=== PATIENT | female | born 1960 | race Caucasian/White ===

== ENCOUNTER 2019-02-23 13:02 | Emergency (ER) | payer OTHER ==
[~2019-02-23] VITALS: Ht 152.4 cm; Wt 68.0 kg
[2019-02-23 13:02] VITALS: BP_SYST 144
[2019-02-23 13:44] LABS: BASOPHILS % (AUTO) 0.3 % (0.0-2.0); EOSINOPHILS % (AUTO) 0.4 % (0.0-4.0); HEMOGLOBIN 9.7 g/dL (12.0-16.0); LYMPHOCYTES # (AUTO) 1.6 K/uL (1.0-5.5); LYMPHOCYTES % (AUTO) 19.4 % (20.5-51.5); MEAN CORPUSCULAR HEMOGLOBIN 27 pg (27-31); MEAN CORPUSCULAR HGB CONC 32 % (32-36); MEAN CORPUSCULAR VOLUME 85 fL (79.0-98.0); MONOCYTES # (AUTO) 0.4 K/uL (0.0-1.0); MONOCYTES % (AUTO) 5.4 % (1.7-9.3); NEUTROPHILS # (AUTO) 6.1 K/uL (1.8-7.7); NEUTROPHILS % (AUTO) 74.5 % (40.0-70.0); PLATELET COUNT (AUTO) 221 K/uL (130-430); RED BLOOD CELL COUNT(AUTO) 3.54 MIL/uL (4.2-6.2); RED CELL DISTRIBUTION WIDTH 15.5 % (9.0-15.0); WHITE BLOOD COUNT (AUTO) 8.2 K/uL (4.8-10.8)
[2019-02-23] MEDS ORDERED: DIPHENHYDRAMINE INJ 50 MG/ML VIAL IVP ONE (13:45)
[2019-02-23] MEDS ORDERED: fentaNYL CITRATE/PF 100 MCG/2 ML AMP IVP ONE (13:45)
[2019-02-23] MEDS ORDERED: PIPERACILLIN/TAZO 3.38 GM in NS 50 ML IV ONE (13:45)
[2019-02-23 13:57] LABS: CREATININE 0.6 mg/dL (0.55-1.30); POTASSIUM 3.5 mmol/L (3.5-5.1)
[2019-02-23 14:01] LABS: ALBUMIN 3.4 g/dL (3.4-4.8); TOTAL BILIRUBIN 0.5 mg/dL (0.0-1.0)
[2019-02-23 14:18] LABS: INR 0.9 (0.8-1.2); PROTHROMBIN TIME 9.7 SECS (9.5-12.5)
[2019-02-23] MEDS ORDERED: KETOROLAC TROMETHAMINE 30 MG VIAL IVP ONE (15:00)
[2019-02-23] MEDS ORDERED: CIPROFLOXACIN HCL 500 MG TABLET PO ONE (15:00)
[2019-02-23 15:30] LABS: BILIRUBIN,URINE NEGATIVE (NEGATIVE); CLARITY/URINE CLEAR (CLEAR); COLOR,URINE YELLOW (YELLOW); GLUCOSE,URINE NEGATIVE (NEGATIVE); KETONES,URINE NEGATIVE (NEGATIVE); LEUKOCYTE ESTERASE ,URINE NEGATIVE (NEGATIVE); NITRITE, URINE NEGATIVE (NEGATIVE); PROTEIN URINE NEGATIVE (NEGATIVE); UROBILINOGEN,URINE 0.2 (0.2-1.0)
[2019-02-23 15:32] LABS: BLOOD, URINE TRACE (NEGATIVE)
[2019-02-23 15:44] LABS: BACTERIA,URINE FEW /HPF (None Seen); RBC,URINE 0-3 /HPF (0-3); WBC,URINE 0-3 /HPF (0-3)
[2019-02-23 15:45] LABS: MUCUS,URINE None Seen /LPF (None Seen)
[2019-02-23 16:05] VITALS: BP_SYST 139
== END 2019-02-23 16:06 | disposition home or self-care (01) ==
LOC: SED 13:02
DX: R10.11 Right upper quadrant pain (principal); R11.2 Nausea with vomiting, unspecified; Z90.49 Acquired absence of other specified parts of digestive tract; Z90.89 Acquired absence of other organs; Z85.850 Personal history of malignant neoplasm of thyroid; Z85.528 Personal history of other malignant neoplasm of kidney; Z88.6 Allergy status to analgesic agent; Z88.8 Allergy status to other drugs, medicaments and biological substances
CPT/HCPCS: 36415; 71045; 74176; 80053; 81000; 83605; 83690; 85025; 85610; 87040; 93005; 96374; 96375; 99284; J1200; J3010; J1885

== ENCOUNTER 2020-06-16 10:43 | Emergency (ER) | payer OTHER ==
[~2020-06-16] VITALS: Ht 152.4 cm; Wt 70.8 kg
[2020-06-16 10:44] VITALS: BP_SYST 140
--- NOTE | 2020-06-16 10:52 | NUR ---
Patient triaged and placed in waiting room. VSS and patient appears in no acute distress at this time. Awaiting available bed, and MD notified of need for MSE.
--- NOTE | 2020-06-16 11:11 | NUR ---
Patient to ER bed 4 to gown for evaluation. Side rails up. Report given to EMILY Sanchez.
--- NOTE | 2020-06-16 11:26 | NUR ---
Note undone in EDM - 06/16/20 at 1129 by JUAN PT REPORTS 08/08 EPIGASTRIC PAIN STARTING THIS MORNING. HAS NOT EATEN OR DRANK ANYTHING TODAY. NAUSEA WITH DRY HEAVING. HISTORY OF DIVERTICULITIS AND THYROID REMOVAL, IBS WITH CONSTIPATION AND GERD. RESTING IN BED, AAOX4, V/S STABLE
--- NOTE | 2020-06-16 11:30 | NUR ---
PT REPORTS 10/10 EPIGASTRIC PAIN STARTING THIS MORNING. HAS NOT EATEN OR DRANK ANYTHING TODAY. NAUSEA WITH DRY HEAVING. HISTORY OF DIVERTICULITIS AND THYROID REMOVAL, IBS WITH CONSTIPATION AND GERD. RESTING IN BED, AAOX4, V/S STABLE
--- NOTE | 2020-06-16 11:32 | NUR ---
DR. PRIEST AT THE BEDSIDE
[2020-06-16] MEDS ORDERED: ONDANSETRON 4 MG ODT TAB PO ONE (11:45)
[2020-06-16] MEDS ORDERED: KETOROLAC TROMETHAMINE 60 MG/2 ML VIAL IM ONE (11:45)
[2020-06-16] MEDS ORDERED: MAG HYDROX/AL HYDROX/SIMETH 30 ML, DICYCLOMINE HCL 20 MG, LIDOCAINE VISCOUS 2% 15ML (PO... PO ONE ×3 (11:45)
--- NOTE | 2020-06-16 11:52 | NUR ---
PT MEDICATED FOR PAIN
[2020-06-16 12:10] LABS: CALCIUM 9.2 mg/dL (8.4-11.0); CREATININE 0.69 mg/dL (0.55-1.30); POTASSIUM 3.5 mmol/L (3.5-5.1)
--- NOTE | 2020-06-16 12:10 | NUR ---
PT ABLE TO VOID, SAMPLE COLLECTED AND TAKEN TO LAB
[2020-06-16 12:16] LABS: ALBUMIN 3.4 g/dL (3.4-4.8); TOTAL BILIRUBIN 0.5 mg/dL (0.0-1.0)
[2020-06-16 12:22] LABS: BASOPHILS # (AUTO) 0.1 K/uL (0.0-0.2); BASOPHILS % (AUTO) 0.8 % (0.0-2.0); EOSINOPHILS # (AUTO) 0.1 K/uL (0.0-0.4); EOSINOPHILS % (AUTO) 0.6 % (0.0-4.0); HEMOGLOBIN 12.7 g/dL (12.0-16.0); LYMPHOCYTES # (AUTO) 1.7 K/uL (1.0-5.5); LYMPHOCYTES % (AUTO) 17.1 % (20.5-51.5); MEAN CORPUSCULAR HEMOGLOBIN 26 pg (27-31); MEAN CORPUSCULAR HGB CONC 32 % (32-36); MEAN CORPUSCULAR VOLUME 82 fL (79.0-98.0); MONOCYTES # (AUTO) 0.5 K/uL (0.0-1.0); MONOCYTES % (AUTO) 5.1 % (1.7-9.3); NEUTROPHILS # (AUTO) 7.4 K/uL (1.8-7.7); NEUTROPHILS % (AUTO) 76.4 % (40.0-70.0); PLATELET COUNT (AUTO) 255 K/uL (130-430); RED BLOOD CELL COUNT(AUTO) 4.86 MIL/uL (4.2-6.2); RED CELL DISTRIBUTION WIDTH 14.6 % (9.0-15.0); WHITE BLOOD COUNT (AUTO) 9.7 K/uL (4.8-10.8)
[2020-06-16 13:21] VITALS: BP_SYST 140
--- NOTE | 2020-06-16 13:23 | NUR ---
Patient given written and verbal discharge instructions and verbalizes understanding. ER MD discussed with patient the results and treatment provided. Patient in stable condition. ID arm band removed. IV catheter removed intact and dressing applied, no active bleeding. Rx of Carafate given. Patient educated on pain management and to follow up with PMD. Pain Scale 3/10. Opportunity for questions provided and answered. Medication side effect fact sheet provided.
== END 2020-06-16 13:21 | disposition home or self-care (01) ==
LOC: SED 10:43
DX: R10.13 Epigastric pain (principal); Z85.850 Personal history of malignant neoplasm of thyroid; Z85.528 Personal history of other malignant neoplasm of kidney; Z88.6 Allergy status to analgesic agent
CPT/HCPCS: 36415; 80053; 83690; 85025; 93005; 96372; 99284; J1885; J2001; Q0162

== ENCOUNTER 2020-10-18 19:07 | Emergency (ER) | payer OTHER ==
[~2020-10-18] VITALS: Ht 152.4 cm; Wt 69.4 kg
--- NOTE | 2020-10-18 20:00 | NUR ---
ER Dr. Ku at bedside examining patient.
[2020-10-18 20:15] VITALS: BP_SYST 127
--- NOTE | 2020-10-18 20:15 | NUR ---
Patient triaged and placed in ER Tent. VSS and patient appears in no acute distress at this time. Awaiting available bed, and MD notified of need for MSE.
--- NOTE | 2020-10-18 20:16 | NUR ---
Patient came from home for evaluation of what she says is a diverticulitis flare up. She is complaining of nausea,vomiting,diarrhea,and headache.
--- NOTE | 2020-10-18 20:30 | NUR ---
ADIS Ku in tent examining patient.
--- NOTE | 2020-10-18 22:15 | NUR ---
Patient left without being seen.
== END 2020-10-18 22:15 | disposition left against medical advice (07) ==
LOC: SED 19:07
DX: R10.32 Left lower quadrant pain (principal); Z88.5 Allergy status to narcotic agent; Z88.8 Allergy status to other drugs, medicaments and biological substances
CPT/HCPCS: 76376; 99284

== ENCOUNTER 2020-11-09 09:26 | Emergency (ER) | payer OTHER, SELFPAY ==
[~2020-11-09] VITALS: Ht 152.4 cm; Wt 68.0 kg
[2020-11-09 09:39] VITALS: BP_SYST 142
[2020-11-09] MEDS ORDERED: ONDANSETRON 4 MG ODT TAB PO ONE (09:45)
[2020-11-09] MEDS ORDERED: KETOROLAC TROMETHAMINE 60 MG/2 ML VIAL IM ONE ×2 (09:45→10:22)
[2020-11-09 10:26] LABS: BASOPHILS % (AUTO) 0.3 % (0.0-2.0); HEMATOCRIT 43.2 % (36-48); LYMPHOCYTES # (AUTO) 1.4 K/uL (1.0-5.5); LYMPHOCYTES % (AUTO) 21.5 % (20.5-51.5); MEAN CORPUSCULAR HEMOGLOBIN 27 pg (27-31); MEAN CORPUSCULAR HGB CONC 33 % (32-36); MEAN CORPUSCULAR VOLUME 83 fL (79.0-98.0); MONOCYTES # (AUTO) 0.4 K/uL (0.0-1.0); MONOCYTES % (AUTO) 5.8 % (1.7-9.3); NEUTROPHILS # (AUTO) 4.7 K/uL (1.8-7.7); NEUTROPHILS % (AUTO) 72.4 % (40.0-70.0); PLATELET COUNT (AUTO) 200 K/uL (130-430); RED BLOOD CELL COUNT(AUTO) 5.23 MIL/uL (4.2-6.2); RED CELL DISTRIBUTION WIDTH 14.9 % (9.0-15.0); WHITE BLOOD COUNT (AUTO) 6.5 K/uL (4.8-10.8)
[2020-11-09 10:29] LABS: CALCIUM 8.6 mg/dL (8.4-11.0); CREATININE 0.76 mg/dL (0.55-1.30); POTASSIUM 3.8 mmol/L (3.5-5.1)
[2020-11-09 10:35] LABS: ALBUMIN 3.7 g/dL (3.4-4.8); TOTAL BILIRUBIN 0.4 mg/dL (0.0-1.0)
[2020-11-09 11:08] LABS: BILIRUBIN,URINE NEGATIVE (NEGATIVE); BLOOD, URINE 1+ (NEGATIVE); CLARITY/URINE CLEAR (CLEAR); COLOR,URINE YELLOW (YELLOW); GLUCOSE,URINE NEGATIVE (NEGATIVE); KETONES,URINE 1+ (NEGATIVE); LEUKOCYTE ESTERASE ,URINE NEGATIVE (NEGATIVE); NITRITE, URINE NEGATIVE (NEGATIVE); PH,URINE 5.5 (5.0-8.0); PROTEIN URINE TRACE (NEGATIVE); UROBILINOGEN,URINE 0.2 (0.2-1.0)
[2020-11-09] MEDS ORDERED: IBUP-1969 PO (11:17)
[2020-11-09] MEDS ORDERED: AZIT250T PO (11:17)
[2020-11-09] MEDS ORDERED: PRED20TA PO (11:17)
[2020-11-09 11:29] VITALS: BP_SYST 142
[2020-11-09 11:33] LABS: BACTERIA,URINE None Seen /HPF (None Seen); WBC,URINE NONE SEEN /HPF (0-3); YEAST,URINE None Seen /HPF (None Seen)
== END 2020-11-09 11:29 | disposition home or self-care (01) ==
LOC: SED 09:26
DX: U07.1 COVID-19 (principal); J18.9 Pneumonia, unspecified organism; R10.9 Unspecified abdominal pain; Z85.3 Personal history of malignant neoplasm of breast; Z88.6 Allergy status to analgesic agent
CPT/HCPCS: 36415; 74176; 76376; 80053; 81000; 82150; 83605; 83615; 83690; 85025; 85610; 85730; 96372; 99284; J1885; Q0162

== ENCOUNTER 2021-10-01 16:20 | Emergency (ER) | payer OTHER, SELFPAY ==
[~2021-10-01] VITALS: Ht 154.9 cm; Wt 71.2 kg
[~2021-10-01 16:20] MED LIST: IBUP-1969 PO; PRED20TA PO; ZIT250 PO
[2021-10-01 16:34] VITALS: BP_SYST 149
--- NOTE | 2021-10-01 16:35 | NUR ---
Patient to ER bed 7 to gown for evaluation. Side rails up.
--- NOTE | 2021-10-01 16:42 | NUR ---
ER at bedside examining patient.
--- NOTE | 2021-10-01 16:43 | NUR ---
Patient transported to radiology via GURNEY, accompanied by RAD STAFF
--- NOTE | 2021-10-01 16:45 | NUR ---
Pt brought by self, A&Ox4, pt presents to ER with L lower abdominal pain/ N/V, skin pink and warm, cap refill <3, VSS, respirations even and unlabored.
[2021-10-01 17:12] LABS: BASOPHILS % (AUTO) 0.5 % (0.0-2.0); EOSINOPHILS % (AUTO) 0.3 % (0.0-4.0); HEMATOCRIT 40.3 % (36-48); HEMOGLOBIN 13.2 g/dL (12.0-16.0); LYMPHOCYTES # (AUTO) 1.4 K/uL (1.0-5.5); LYMPHOCYTES % (AUTO) 14.7 % (20.5-51.5); MEAN CORPUSCULAR HEMOGLOBIN 26 pg (27-31); MEAN CORPUSCULAR HGB CONC 33 % (32-36); MEAN CORPUSCULAR VOLUME 81 fL (79.0-98.0); MONOCYTES # (AUTO) 0.6 K/uL (0.0-1.0); MONOCYTES % (AUTO) 5.8 % (1.7-9.3); NEUTROPHILS # (AUTO) 7.6 K/uL (1.8-7.7); NEUTROPHILS % (AUTO) 78.7 % (40.0-70.0); PLATELET COUNT (AUTO) 256 K/uL (130-430); RED BLOOD CELL COUNT(AUTO) 4.99 MIL/uL (4.2-6.2); RED CELL DISTRIBUTION WIDTH 15.4 % (9.0-15.0); WHITE BLOOD COUNT (AUTO) 9.7 K/uL (4.8-10.8)
[2021-10-01] MEDS: ONDANSETRON HCL 4 MG/2 ML VIAL IVP ONE (17:14)
[2021-10-01] MEDS: KETOROLAC TROMETHAMINE 30 MG VIAL IVP ONE (17:15)
[2021-10-01] MEDS: NACL 0.9% 1,000 ML IV ONE (17:15)
[2021-10-01 17:18] LABS: CALCIUM 9.2 mg/dL (8.4-11.0); CREATININE 0.67 mg/dL (0.55-1.30); POTASSIUM 3.7 mmol/L (3.5-5.1)
[2021-10-01 17:23] LABS: PROTHROMBIN TIME 10.2 SECS (9.5-12.5)
[2021-10-01 17:24] LABS: ALBUMIN 3.7 g/dL (3.4-4.8); TOTAL BILIRUBIN 0.7 mg/dL (0.0-1.0)
[2021-10-01 17:38] LABS: BILIRUBIN,URINE NEGATIVE (NEGATIVE); BLOOD, URINE 1+ (NEGATIVE); COLOR,URINE YELLOW (YELLOW); GLUCOSE,URINE NEGATIVE (NEGATIVE); KETONES,URINE TRACE (NEGATIVE); NITRITE, URINE NEGATIVE (NEGATIVE); PH,URINE 6.5 (5.0-8.0); PROTEIN URINE TRACE (NEGATIVE); UROBILINOGEN,URINE 0.2 (0.2-1.0)
[2021-10-01 17:56] LABS: CLARITY/URINE HAZY (CLEAR); LEUKOCYTE ESTERASE ,URINE 1+ (NEGATIVE)
[2021-10-01 17:59] LABS: BACTERIA,URINE FEW /HPF (None Seen)
--- NOTE | 2021-10-01 18:00 | NUR ---
Pt A&Ox4, VSS, respirations even and unlabored
[2021-10-01] MEDS ORDERED: METR500T PO (18:53)
[2021-10-01] MEDS ORDERED: CIPR500T5 PO (18:53)
[2021-10-01] MEDS ORDERED: POLY17PO4 PO (18:53)
[2021-10-01] MEDS: cefTRIAXone 1 GM IVPB PREMIX 50 ML IV ONE (19:25)
[2021-10-01 20:00] VITALS: BP_SYST 149
--- NOTE | 2021-10-01 20:01 | NUR ---
Patient given written and verbal discharge instructions and verbalizes understanding. ER MD discussed with patient the results and treatment provided. Patient in stable condition. ID arm band removed. IV catheter removed intact and dressing applied, no active bleeding. Rx of Cipro,flagyl, Miralax given. Patient educated on pain management and to follow up with PMD. Pain Scale 0/10. Opportunity for questions provided and answered. Medication side effect fact sheet provided.
== END 2021-10-01 20:01 | disposition home or self-care (01) ==
LOC: SED 16:20
DX: N39.0 Urinary tract infection, site not specified (principal); R10.32 Left lower quadrant pain; Z88.5 Allergy status to narcotic agent; Z88.8 Allergy status to other drugs, medicaments and biological substances; Z79.899 Other long term (current) drug therapy
CPT/HCPCS: 36415; 74176; 76376; 80053; 81000; 83690; 85025; 85610; 85730; 87040; 87086; 96361; 96365; 96375; 99284; J0696; J1885; J2405; J7030

== ENCOUNTER 2023-11-23 11:33 | Emergency (ER) | payer OTHER ==
[~2023-11-23] VITALS: Ht 152.4 cm; Wt 71.7 kg
[~2023-11-23 11:33] MED LIST changes: +AUG875 PO; +LEVO88CA4; +METR500T PO; +POLY17PO4 PO; -ZIT250 PO
[2023-11-23 11:35] VITALS: BP_SYST 148; PULSE 78; RESP 18; TEMP 98.1; O2SAT 96
[2023-11-23 12:51] LABS: BASOPHILS % (AUTO) 0.3 % (0.0-2.0); EOSINOPHILS % (AUTO) 0.2 % (0.0-4.0); HEMATOCRIT 37.5 % (36-48); HEMOGLOBIN 12.3 g/dL (12.0-16.0); LYMPHOCYTES # (AUTO) 1.9 K/uL (1.0-5.5); LYMPHOCYTES % (AUTO) 20.7 % (20.5-51.5); MEAN CORPUSCULAR HEMOGLOBIN 27 pg (27-31); MEAN CORPUSCULAR HGB CONC 33 % (32-36); MEAN CORPUSCULAR VOLUME 82 fL (79.0-98.0); MONOCYTES # (AUTO) 0.8 K/uL (0.0-1.0); MONOCYTES % (AUTO) 8.7 % (1.7-9.3); NEUTROPHILS # (AUTO) 6.5 K/uL (1.8-7.7); NEUTROPHILS % (AUTO) 70.1 % (40.0-70.0); PLATELET COUNT (AUTO) 332 K/uL (130-430); RED BLOOD CELL COUNT(AUTO) 4.58 MIL/uL (4.2-6.2); RED CELL DISTRIBUTION WIDTH 15.6 % (9.0-15.0); WHITE BLOOD COUNT (AUTO) 9.3 K/uL (4.8-10.8)
[2023-11-23 13:01] LABS: CALCIUM 9.2 mg/dL (8.4-11.0); CREATININE 0.75 mg/dL (0.55-1.30); POTASSIUM 3.9 mmol/L (3.5-5.1)
[2023-11-23 13:05] LABS: ALBUMIN 3.4 g/dL (3.4-4.8); TOTAL BILIRUBIN 0.5 mg/dL (0.0-1.0); TOTAL PROTEIN, SERUM 7.3 g/dL (6.4-8.3)
[2023-11-23 13:08] LABS: BILIRUBIN,URINE NEGATIVE (NEGATIVE); BLOOD, URINE 1+ (NEGATIVE); CLARITY/URINE CLEAR (CLEAR); COLOR,URINE YELLOW (YELLOW); GLUCOSE,URINE NEGATIVE (NEGATIVE); KETONES,URINE NEGATIVE (NEGATIVE); LEUKOCYTE ESTERASE ,URINE NEGATIVE (NEGATIVE); NITRITE, URINE NEGATIVE (NEGATIVE); PROTEIN URINE NEGATIVE (NEGATIVE)
[2023-11-23 13:46] LABS: BACTERIA,URINE RARE /HPF (None Seen); WBC,URINE 0-3 /HPF (0-3)
[2023-11-23] MEDS ORDERED: KETOROLAC TROMETHAMINE 60 MG/2 ML VIAL IM ONE (15:45)
[2023-11-23 15:47] VITALS: BP_SYST 148; PULSE 78; RESP 18; TEMP 98.1; O2SAT 96
== END 2023-11-23 15:47 | disposition home or self-care (01) ==
LOC: SED 11:33
DX: R10.31 Right lower quadrant pain (principal); Z88.5 Allergy status to narcotic agent; Z88.8 Allergy status to other drugs, medicaments and biological substances; Z85.850 Personal history of malignant neoplasm of thyroid; Z85.528 Personal history of other malignant neoplasm of kidney; Z79.899 Other long term (current) drug therapy
CPT/HCPCS: 99285; 74176; 80053; 81001; 85025; 36415; 76376; 96372; 81000; 81015; J1885